=== PATIENT | male | born 1990 | race Caucasian/White ===

== ENCOUNTER 2016-05-22 00:23 | Emergency (ER) | payer OTHER ==
[2016-05-22 01:10] VITALS: BP 144/96; PULSE 70; TEMP 97.3; BMI 28.7
[2016-05-22] MEDS ORDERED: PANTOPRAZOLE SODIUM 40 MG in SODIUM CHLORIDE 100 ML IVPB ONE (01:29)
[2016-05-22] MEDS ORDERED: SODIUM CHLORIDE 0.9% 1000 ML INFUS.BAG IV ONE (01:29)
[2016-05-22] MEDS ORDERED: FAMOTIDINE 20 MG/50 ML IVPB 50 ML IVPB ONE ×2 (01:29→02:15)
--- NOTE | 2016-05-22 01:31 | PDOC ---
[id number] DISCOMFORT Time Seen by Provider: 05/22/16 01:09 - History of Present Illness Initial Comments: 05/22/16 01:27 CHIEF COMPLAINT: abdominal discomfort HISTORY OF PRESENT ILLNESS: 26-year-old male with no past medical history presents to ED with nausea and burning of her stomach. Patient states that he ate around 6 potato skins of carter and cheese around 11 PM and went to sleep. Patient states he woke up feeling a burning sensation at the top of his abdomen. Patient took Mylanta with no relief and states that every time he swallows he feels more burning. He denies any fever, chills, vomiting, diarrhea , rectal bleeding. PAST MEDICAL HISTORY: Denies past medical history FAMILY HISTORY: Denies SOCIAL HISTORY: Denies tobacco, alcohol, illicit drug use. SURGICAL HISTORY: Denies ALLERGIES: No known drug allergies REVIEW OF SYSTEMS General/Constitutional: Denies fever or chills. Denies weakness, weight change. HEENT: Denies change in vision. Denies ear pain or discharge. Denies sore throat. Cardiovascular: Denies chest pain or shortness of breath. Respiratory: Denies cough, wheezing, or hemoptysis. Gastrointestinal: "Burning sensation when I swallow at the bottom of my chest/ top of adomen." Denies nausea, vomiting, diarrhea or constipation. Denies rectal bleeding. Genitourinary: Denies dysuria, frequency, or change in urination. Musculoskeletal: Denies joint or muscle swelling or pain. Denies neck or back pain. Skin and breasts: Denies rash or easy bruising. PHYSICAL EXAM General Appearance: Well-appearing, appropriately dressed. No apparent distress , no intoxication. HEENT: EOMI, PERRLA, normal ENT inspection, normal voice, TMs normal, pharynx normal. No conjunctival pallor. No photophobia, scleral icterus. Respiratory/Chest: Lungs CTAB. Cardiovascular: RRR. S1, S2. Gastrointestinal/Abdominal: Normal bowel sounds. Abdomen soft, non-distended. No tenderness or rebound tenderness. No organomegaly, pulsatile mass, guarding , hernia, hepatomegaly, splenomegaly. Musculoskeletal/Extremities: Normal inspection. FROM of all extremities, normal capillary refill.No tenderness to extremities, pedal edema, swelling, erythema or deformity. Integumentary: Appropriate color, dry, warm. No cyanosis, erythema, jaundice or rash Neurologic: collaborating supervising physician II-XII intact. Fully oriented, alert. Appropriate mood/affect. Motor strength 5/5. No appreciable EOM palsy, facial droop or sensory deficit. 05/22/16 01:32 Past History - Past Medical History Allergies/Adverse Reactions: Allergies Allergy/AdvReac Type Severity Reaction Status Date / Time No Known Allergies Allergy Verified 05/22/16 01:08 Home Medications: Ambulatory Orders Ibuprofen [Motrin -] 600 mg PO Q6H PRN #10 tablet 03/20/15 Ondansetron [Ondansetron Odt] 8 mg PO Q8H PRN #7 tab.rapdis 03/20/15 Valacyclovir HCl [Valtrex -] 1,000 mg PO DAILY 03/20/15 Omeprazole 20 mg PO DAILY #14 capsule. 05/22/16 Anemia: No Asthma: No Cancer: No Cardiac Disorders: No CVA: No COPD: No CHF: No DVT: No GI Disorders: No - Immunization History Immunization Up to Date: Yes - Psycho/Social/Smoking Cessation Hx Anxiety: No Suicidal Ideation: No Smoking History: Never smoked Have you smoked in the past 12 months: No Information on smoking cessation initiated: No Hx Alcohol Use: No Drug/Substance Use Hx: No Abd/GI Specific PMHX - Complaint Specific PMHX Colitis: No Diverticulitis: No Gall Bladder Disease: No *Physical Exam - Vital Signs Last Vital Signs Temp Pulse Resp BP Pulse Ox 97.3 F L 70 20 144/96 100 05/22/16 01:08 05/22/16 01:08 05/22/16 01:08 05/22/16 01:08 05/22/16 01:08 Medical Decision Making - Medical Decision Making 05/22/16 01:31 26 yo M with no PMH presents to ED with GERD symptoms. -IVF, pepcid, protonix IV Will reassess. Patient reassessed; states he is feeling much better. Will discharge to home with close follow up with GI. Advised patient to take medications as prescribed and that he must f/u with GI this week. Advised patient of signs and symptoms for return to ER; patient verbalized understanding and agrees to plan. *DC/Admit/Observation/Transfer Diagnosis at time of Disposition: GERD (gastroesophageal reflux disease) Qualifiers: Esophagitis presence: esophagitis presence not specified Qualified Code(s): K21.9 - Gastro-esophageal reflux disease without esophagitis - Discharge Dispostion Disposition: HOME Condition at time of disposition: Stable Admit: No - Prescriptions Prescriptions: Omeprazole 20 mg PO DAILY #14 capsule.dr - Referrals Referrals: Dinesh Peralta [Primary Care Provider] - Tahmina Daniel MD [Staff Physician] - - Patient Instructions Printed Discharge Instructions: DI for Gastroesophageal Reflux Disease (GERD) Additional Instructions: As discussed, you need to follow up with your primary care doctor and/or a steel pan form placing supervisor for further evaluation of your reflux. Please avoid eating spicy or greasy foods or caffeine until you have been reevaluated. If you experience any lower abdominal pain, vomiting, diarrhea, rectal bleeding, or any new or worsening symptoms, please return to the ER.
[2016-05-22] MEDS ORDERED: PANTOPRAZOLE SODIUM 100 ML IVPB ONE (02:15)
[2016-05-22] MEDS ORDERED: ONDANSETRON 4 MG/2 ML VIAL IVPUSH ONE (02:42)
[2016-05-22] MEDS ORDERED: ONDANSETRON 4 MG/2 ML VIAL ONE (03:06)
== END 2016-05-22 03:27 | disposition home or self-care (01) ==
LOC: JER 00:23
PROC: 3E033GC Introduction of Other Therapeutic Substance into Peripheral Vein, Percutaneous Approach (ICD-10-PCS; principal; 2016-05-22)
PROC: 3E033GC Introduction of Other Therapeutic Substance into Peripheral Vein, Percutaneous Approach (ICD-10-PCS; 2016-05-22)
PROC: 3E033GC Introduction of Other Therapeutic Substance into Peripheral Vein, Percutaneous Approach (ICD-10-PCS; 2016-05-22)
DX: K21.9 Gastro-esophageal reflux disease without esophagitis (principal)
CPT/HCPCS: 99282-25